=== PATIENT | male | born 1990 | race African-American/Black ===

== ENCOUNTER 2024-11-22 11:54 | Inpatient (IN) | payer SELFPAY ==
[~2024-11-22] VITALS: Ht 172.7 cm; Wt 75.4 kg
[2024-11-22 12:02] VITALS: O2SAT 96
[2024-11-22 12:58] LABS: HEMATOCRIT. 46.4 % (42.0-52.0); HEMOGLOBIN. 14.7 g/dL (14.0-18.0); MEAN PLATELET VOLUME 9.9 fl (7.4-10.4); PLATELET 269 x1000/uL (130-400); RED BLOOD CELL COUNT 5.20 mill/uL (4.7-6.1); RED CELL DISTRIBUTION WIDTH 14.6 % (11.6-14.6)
[2024-11-22 13:12] LABS: CREATININE 1.9 mg/dL (0.6-1.3); UREA NITROGEN BLOOD 22 mg/dL (9-23)
[2024-11-22] MEDS ORDERED: LORAZEPAM 2MG/ML UD SYRINGE ONE (14:10)
[2024-11-22] MEDS: DIPHENHYDRAMINE 50MG/ML VIAL IM ONE (14:28)
[2024-11-22 14:29] LABS: CLARITY URINE CLOUDY (CLEAR); GLUCOSE URINE NEGATIVE (NEGATIVE); KETONES URINE 2+ (NEGATIVE); LEUKOCYTE ESTERASE URINE NEGATIVE (NEGATIVE); NITRITE URINE NEGATIVE (NEGATIVE); OCCULT BLOOD URINE 2+ (NEGATIVE); PH URINE 5.0 (4.5-8.0); PROTEIN URINE 2+ (NEGATIVE); SPECIFIC GRAVITY URINE 1.026 (1.005-1.030); UROBILINOGEN URINE 1.0 E.U./dL (0.2-1.0)
[2024-11-22] MEDS: LORAZEPAM 2MG/ML UD SYRINGE IM ONE (14:29)
[2024-11-22] MEDS: SODIUM CHLORIDE 0.9% (SEPSIS BOLUS) IV ONE (14:33)
[2024-11-22] MEDS: PIPERACILLIN/TAZO 3.375G/50ML 50 ML IV ONE (14:33)
[2024-11-22 14:44] LABS: *AMPHETAMINES SCREEN URINE PRESUMPTIVE POSITIVE (NEGATIVE); *BARBITURATES SCREEN URINE NEGATIVE (NEGATIVE); *BENZODIAZEPINES SCREEN URINE NEGATIVE (NEGATIVE); *COCAINE SCREEN URINE NEGATIVE (NEGATIVE); METHADONE URINE SCREEN NEGATIVE (NEGATIVE); OPIATES URINE SCREEN NEGATIVE (NEGATIVE)
[2024-11-22 14:45] LABS: CANNABINOID URINE SCREEN PRESUMPTIVE POSITIVE (NEGATIVE); ECSTASY MDMA SCREEN URINE CONF.TEST INDICATED (NEGATIVE); PHENCYCLIDINE URINE SCREEN NEGATIVE (NEGATIVE)
[2024-11-22 14:46] LABS: COLOR URINE YELLOW (YELLOW)
[2024-11-22 14:47] LABS: BACTERIA URINE TRACE; RBC URINE 0-2 /hpf (0-2); SQUAMOUS EPITHELIAL CELL URINE RARE /lpf (RARE/1+); WBC URINE 0-2 /hpf (0-2)
[2024-11-22 14:48] LABS: COARSE GRANULAR CASTS URINE 0-5 /lpf; MUCUS URINE TRACE /lpf (NONE/TRACE)
[2024-11-22] MEDS: VANCOMYCIN 1G PREMIX 200 ML IV ONE (15:19)
[2024-11-22] MEDS: SODIUM CHLORIDE 0.9% 1,000 ML IV ONE ×2 (15:46→18:44)
[2024-11-22 16:24] LABS: BAND% 3.0 % (1.0-6.0); LYMPHOCYTES % MANUAL 7.0 % (20.0-50.0); MONOCYTES % MANUAL 5.0 % (2.0-8.0); NEUTROPHILS % MANUAL 85.0 % (45.0-75.0); PLATELET ESTIMATE NORMAL
[2024-11-22 22:00] LABS: BASOPHILS % 0.4 % (0.0-2.0); EOSINOPHILS % 0.2 % (0.0-5.0); HEMATOCRIT. 40.8 % (42.0-52.0); HEMOGLOBIN. 13.0 g/dL (14.0-18.0); LYMPHOCYTES % 22.0 % (20.0-50.0); MEAN PLATELET VOLUME 9.3 fl (7.4-10.4); MONOCYTES % 8.1 % (2.0-8.0); NEUTROPHILS % 69.3 % (40.0-76.0); PLATELET 202 x1000/uL (130-400); RED BLOOD CELL COUNT 4.46 mill/uL (4.7-6.1); RED CELL DISTRIBUTION WIDTH 15.1 % (11.6-14.6)
[2024-11-23 00:43] VITALS: BP 103/73; PULSE 87; RESP 18; TEMP 36.5292
[2024-11-23] MEDS ORDERED: MORPHINE SULFATE 4 MG/ML INJ (FOR IV/IM USE) IV PRN (04:30)
[2024-11-23] MEDS: PIPERACILLIN/TAZO 3.375G/50ML 50 ML IV SCH (06:17)
[2024-11-23] MEDS: DEXT 5%/0.45% NACL KCL 20MEQ/L 1,000 ML IV SCH (06:17)
[2024-11-23 08:00] VITALS: BP 128/78; PULSE 85; RESP 19; TEMP 36.4; O2SAT 96
[2024-11-23] MEDS ORDERED: IOHEXOL-300 100 ML BOTTLE ONE (09:07)
[2024-11-23] MEDS ORDERED: NALOXONE HCL 0.4MG/ML VIAL IV PRN (09:15)
[2024-11-23] MEDS ORDERED: VANCOMYCIN 750MG PREMIX 150 ML IV SCH (11:00)
== END 2024-11-23 10:45 | disposition left against medical advice (07) | DRG 469 ==
LOC: ER 11:54 → 6WST 22:53 → ENRESERV 23:39
PROVIDERS: ADMIT Internal Medicine; ATTEND Internal Medicine
DX: N17.0 Acute kidney failure with tubular necrosis (principal); F25.9 Schizoaffective disorder, unspecified; Z20.822 Contact with and (suspected) exposure to COVID-19; Z53.29 Procedure and treatment not carried out because of patient's decision for other reasons; F15.10 Other stimulant abuse, uncomplicated; F12.10 Cannabis abuse, uncomplicated; D72.829 Elevated white blood cell count, unspecified; Z79.899 Other long term (current) drug therapy
CPT/HCPCS: 36415; 71045; 74177; 80048; 80305; 80307; 80320; 80329; 81003; 83605; 83735; 85025; 87426; 93005; 96361; 96365; 96367; 96372; 99285; A4606; G0378; J1200; J2060; J2543; J3373; J7030; Q9967; G0480